=== PATIENT | female | born 1965 | race Caucasian/White ===

== ENCOUNTER 2018-04-01 15:28 | Emergency (ER) | payer OTHER, SELFPAY ==
[2018-04-01] MEDS ORDERED: KETOROLAC 30 MG/ML INJ ONE (16:04)
--- NOTE | 2018-04-01 17:23 | RAD REPORT ---
EXAM DESCRIPTION: RAD - Chest Pa And Lat (2 Views) - 04/01/2018 5:17 pm CLINICAL HISTORY: RIGHT UPPER BACK PAIN Chest pain. COMPARISON: Chest Single View dated 11/29/2016; CHEST PA AND LAT 2 VIEW dated 02/26/2015; CHEST SINGLE VIEW dated 02/26/2015; CHEST SINGLE VIEW dated 08/27/2014 FINDINGS: The lungs are clear. The heart is normal in size. No displaced fractures. Moderate lumbar scoliosis. IMPRESSION: No acute finding suspected. Lumbar scoliosis.
--- NOTE | 2018-04-01 17:36 | EDPHYS ---
Physician Documentation [facility] Name: Anitha Waggoner Age: 52 yrs Sex: Female : 1965 Arrival Date: 04/01/2018 Time: 15:30 Bed 25 Private MD: Aman Dolan E ED Physician Hung Yates HPI: 04/01 17:32 This 52 yrs old Female presents to ER via Ambulatory with complaints of Neck gs and Upper Back Pain. 17:32 The patient or guardian complains of pain, that is acute. The symptoms are located on gs the right posterior upper chest wall. Onset: The symptoms/episode began/occurred this morning. Associated signs and symptoms: Pertinent negatives: numbness, tingling, SUDDEN PIERCING CP. The pain does not radiate. Modifying factors: the symptoms are aggravated by movement. Severity of symptoms: At their worst the symptoms were moderate, in the emergency department the symptoms have improved, markedly. The patient has not experienced similar symptoms in the past. 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 Pneumococcal vaccine is not up to date, Flu vaccine is not up to date. - Social history:: Smoking status: Patient/guardian denies using tobacco, the patient reports quitting approximately 1 years ago. - Ebola Screening: : Patient negative for fever greater than or equal to 101.5 degrees Fahrenheit, and additional compatible Ebola Virus Disease symptoms. ROS: 17:32 All other systems are negative. gs Exam: 17:32 Head/Face: Normocephalic, atraumatic. Eyes: Pupils equal round and reactive to light, gs extra-ocular motions intact. Lids and lashes normal. Conjunctiva and sclera are non-icteric and not injected. Cornea within normal limits. Periorbital areas with no swelling, redness, or edema. ENT: Nares patent. No nasal discharge, no septal abnormalities noted. Tympanic membranes are normal and external auditory canals are clear. Oropharynx with no redness, swelling, or masses, exudates, or evidence of obstruction, uvula midline. Mucous membranes moist. Neck: Trachea midline, no thyromegaly or masses palpated, and no cervical lymphadenopathy. Supple, full range of motion without nuchal rigidity, or vertebral point tenderness. No Meningismus. Chest/axilla: Normal chest wall appearance and motion. Nontender with no deformity. No lesions are appreciated. Cardiovascular: Regular rate and rhythm with a normal S1 and S2. No gallops, murmurs, or rubs. Normal PMI, no JVD. No pulse deficits. Respiratory: Lungs have equal breath sounds bilaterally, clear to auscultation and percussion. No rales, rhonchi or wheezes noted. No increased work of breathing, no retractions or nasal flaring. Abdomen/GI: Soft, non-tender, with normal bowel sounds. No distension or tympany. No guarding or rebound. No evidence of tenderness throughout. Skin: Warm, dry with normal turgor. Normal color with no rashes, no lesions, and no evidence of cellulitis. MS/ Extremity: Pulses equal, no cyanosis. Neurovascular intact. Full, normal range of motion. Neuro: Awake and alert, GCS 15, oriented to person, place, time, and situation. Cranial nerves II-XII grossly intact. Motor strength 5/5 in all extremities. Sensory grossly intact. Cerebellar exam normal. Normal gait. 17:32 Constitutional: The patient appears alert, awake. 17:32 ECG was reviewed by the Attending Physician. 17:32 Back: pain, that is mild, of the right subscapular area. Vital Signs: 15:42 BP 148 / 85; Pulse 74; Resp 18; Temp 98.3; Pulse Ox 98% on R/A; rk2 16:21 BP 131 / 87; Pulse 67; Resp 16; Pulse Ox 98% on R/A; mb3 MDM: 15:56 Patient medically screened. 17:32 Differential diagnosis: Cervical Raiculopathy Cervical Spondylosis Degenerative Disc gs Disease. Differential diagnosis: CAD, PTX. Data reviewed: vital signs, nurses notes. Response to treatment: the patient's symptoms have markedly improved after treatment, and as a result, I will discharge patient. 04/01 17:33 Order name: Urine Dipstick--Ancillary (enter results) [facility] 04/01 17:33 Order name: Urine --Ancillary (enter results) [facility] 04/01 15:59 Order name: EKG; Complete Time: 16:00 04/01 15:59 Order name: EKG - Nurse/Tech; Complete Time: 16:08 04/01 15:59 Order name: XRAY Chest Pa And Lat (2 Views); Complete Time: 17:31 EC:32 Rate is 62 beats/min. Rhythm is regular. DC interval is normal. QRS interval is normal. gs T waves are Normal. No ST changes noted. Clinical impression: Normal ECG. Interpreted by me. Administered Medications: 16:07 Drug: TORadol 30 mg Route: IM; Site: right deltoid; mb3 18:08 Follow up: Response: No adverse reaction mb3 Disposition: 04/01/18 17:35 Discharged to Home. Impression: Dorsalgia. - Condition is Stable. - Discharge Instructions: Back Pain, Adult. - Prescriptions for Prednisone 20 mg Oral Tablet - take 1 tablet by ORAL route once daily for 5 days; 5 tablet. - Medication Reconciliation Form, Thank You Letter, Antibiotic Education, Prescription Opioid Use form. - Follow up: Private Physician; When: 2 - 3 days; Reason: Re-evaluation by your physician. Signatures: Dispatcher [employer] EDGA Hung Yates MD MD Sumaya Falk RN RN rk2 Armando Smith, RN RN mb3 Corrections: (The following items were deleted from the chart) 18:09 17:35 04/01/2018 17:35 Discharged to Home. Impression: Dorsalgia. Condition is Stable. mb3 Forms are Medication Reconciliation Form, Thank You Letter, Antibiotic Education, Prescription Opioid Use. Follow up: Private Physician; When: 2 - 3 days; Reason: Re-evaluation by your physician.
--- NOTE | 2018-04-01 17:36 | ER ---
Nurse's Notes [facility] Name: Anitha Waggoner Age: 52 yrs Sex: Female : 1965 Arrival Date: 04/01/2018 Time: 15:30 Bed 25 Private MD: Aman Dolan E Diagnosis: Dorsalgia Presentation: 04/01 15:39 Presenting complaint: Patient states: Right side neck/shoulder/upper back pain. rk2 Reproducible pain, pain on palpation. Onset this morning. Transition of care: patient was not received from another setting of care. Onset of symptoms was April 01, 2018. Risk Assessment: Do you want to hurt yourself or someone else? Patient reports no desire to harm self or others. Initial Sepsis Screen: Does the patient meet any 2 criteria? No. Patient's initial sepsis screen is negative. Does the patient have a suspected source of infection? No. Patient's initial sepsis screen is negative. Care prior to arrival: None. 15:39 Method Of Arrival: Ambulatory rk2 15:39 Acuity: YAMEL 3 rk2 Triage Assessment: 15:41 General: Appears in no apparent distress. well groomed, well developed, well nourished, rk2 Behavior is calm, cooperative. Pain: Complains of pain in Neck/shoulder/back. 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 Pneumococcal vaccine is not up to date, Flu vaccine is not up to date. - Social history:: Smoking status: Patient/guardian denies using tobacco, the patient reports quitting approximately 1 years ago. - Ebola Screening: : Patient negative for fever greater than or equal to 101.5 degrees Fahrenheit, and additional compatible Ebola Virus Disease symptoms. Screenin:49 Abuse screen: Denies threats or abuse. Nutritional screening: No deficits noted. mb3 Tuberculosis screening: No symptoms or risk factors identified. Fall Risk None identified. Assessment: 15:45 General: Appears in no apparent distress. comfortable, well groomed, Behavior is calm, mb3 cooperative, appropriate for age. Pain: Complains of pain in posterior chest. Neuro: Level of Consciousness is awake, alert, obeys commands, Oriented to person, place, time, situation, Appropriate for age. Cardiovascular: Denies chest pain, Heart tones S1 S2 present Capillary refill < 3 seconds is brisk. Respiratory: Airway is patent Respiratory effort is even, unlabored, Respiratory pattern is regular, symmetrical, Breath sounds are clear bilaterally. GI: No deficits noted. : No deficits noted. No signs and/or symptoms were reported regarding the genitourinary system. Musculoskeletal: Reports pain in right scapular area and right subscapular area. Vital Signs: 15:42 BP 148 / 85; Pulse 74; Resp 18; Temp 98.3; Pulse Ox 98% on R/A; rk2 16:21 BP 131 / 87; Pulse 67; Resp 16; Pulse Ox 98% on R/A; mb3 ED Course: 15:30 Patient arrived in ED. sb2 15:31 Aman Dolan MD is Private Physician. sb2 15:33 Armando Smith, MARTIN is Primary Nurse. mb3 15:37 Hung Yates MD is Attending Physician. gs 15:40 Triage completed. rk2 15:49 Arm band placed on left wrist. mb3 17:14 X-ray completed. Patient tolerated procedure well. kp1 17:15 XRAY Chest Pa And Lat (2 Views) In Process Unspecified. EDMS 18:09 Patient has correct armband on for positive identification. mb3 18:09 No provider procedures requiring assistance completed. Patient did not have IV access mb3 during this emergency room visit. Administered Medications: 16:07 Drug: TORadol 30 mg Route: IM; Site: right deltoid; mb3 18:08 Follow up: Response: No adverse reaction mb3 Outcome: 17:35 Discharge ordered by . 18:09 Discharged to home ambulatory. mb3 18:09 Condition: stable 18:09 Discharge instructions given to patient, Instructed on discharge instructions, follow up and referral plans. medication usage, Demonstrated understanding of instructions, follow-up care, medications, Prescriptions given X 1. 18:09 Patient left the ED. mb3 Signatures: Dispatcher [employer] EDKY Patrice Xiomy kp1 Hung Yates MD MD Sumaya Falk RN RN rk2 Tayler Phillips sb2 Armando Smith, RN RN mb3
[2018-04-01 17:52] LABS: Urine Blood NEGATIVE (NEG); Urine Glucose NEGATIVE (NEG); Urine Protein NEGATIVE (NEG); Urine Specific Gravity 1.015 (1.005-1.030)
[2018-04-01 18:31] VITALS: TEMP 98.3; O2SAT 98
[2018-04-01 18:33] VITALS: BP 131/87
--- NOTE | 2018-04-02 06:14 | EKG ---
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
== END 2018-04-01 18:09 | disposition home or self-care (01) ==
LOC: ER 15:28
DX: M54.9 Dorsalgia, unspecified (principal); I10 Essential (primary) hypertension
CPT/HCPCS: 71046; 81003; 81025; 93005; 96372; 99283

== ENCOUNTER 2018-06-13 11:26 | Emergency (ER) | payer OTHER ==
[2018-06-13 13:09] LABS: Barbiturates NEGATIVE (NEGATIVE); Benzodiazepines NEGATIVE (NEGATIVE); Cocaine NEGATIVE (NEGATIVE); METHAMPHETAM NEGATIVE (NEGATIVE); Methadone NEGATIVE (NEGATIVE); Opiates NEGATIVE (NEGATIVE); Phencyclidine NEGATIVE (NEGATIVE); THC Cannibis NEGATIVE (NEGATIVE)
[2018-06-13 13:30] LABS: Absolute Monocytes 0.3 K/uL (0.1-1.3); Absolute Neutrophil 3.7 K/uL (1.8-8.0); Basophils % 0.5 % (0-1.3); Eosinophils % 0.6 % (0-4.4); Hematocrit 38.8 % (36.0-45.0); Lymphocytes % 20.2 % (15.3-44.8); MCH 32.7 pg (27.0-35.0); MCV 95.7 fL (80-100); MPV 8.9 fL (7.6-11.3); Monocytes % 6.7 % (3.3-12.3); RBC Red Blood Cell Count 4.06 M/uL (3.86-4.86)
[2018-06-13 13:33] LABS: Protime INR 0.92
[2018-06-13 13:39] LABS: Urine Blood TRACE (NEG); Urine Glucose NEGATIVE (NEG); Urine Protein NEGATIVE (NEG); Urine pH 6.5 (5.0-7.0)
[2018-06-13 14:38] LABS: ALT/SGPT 15 U/L (12-78); AST/SGOT 18 U/L (15-37); Alkaline Phosphatase 75 U/L (45-117); BUN Blood Urea Nitrogen 11 mg/dL (7-18); Bicarbonate 30 mmol/L (21-32); Bilirubin Direct < 0.1 mg/dL (0-0.2); Bilirubin Total 0.4 mg/dL (0.2-1.0); Glucose Level 109 mg/dL (74-106); Potassium 3.9 mmol/L (3.5-5.1); Protein, Total 8.1 g/dL (6.4-8.2); Sodium Level 137 mmol/L (136-145)
[2018-06-13 14:41] LABS: Alcohol Serum/Plasma < 3 mg/dL (<3)
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
[2018-06-13 15:38] VITALS: BP 154/76; TEMP 98.2; O2SAT 100
--- NOTE | 2018-06-13 16:15 | EKG ---
Test Date: 2018-06-13 Test Time: 12:17:21 Kids Activities Coach: ANMOL MEASUREMENT RESULTS: Intervals: Rate: 70 IN: 126 QRSD: 88 QT: 402 QTc: 434 [place]: P: 42 IN: 126 QRS: 37 T: 26 INTERPRETIVE STATEMENTS: Normal sinus rhythm Normal ECG Compared to ECG 04/01/2018 16:04:01 No significant changes Electronically Signed On 06-13-18 16:14:25 CDT by James Mesa
== END 2018-06-13 15:12 | disposition home or self-care (01) ==
LOC: ER 11:26
DX: K11.7 Disturbances of salivary secretion (principal); F22 Delusional disorders; I10 Essential (primary) hypertension; M32.9 Systemic lupus erythematosus, unspecified
CPT/HCPCS: 36415; 80048; 80076; 80307; 80320; 80329; 81003; 85025; 85610; 85730; 93005; 99283

== ENCOUNTER 2020-04-08 11:58 | Emergency (ER) | payer OTHER, SELFPAY ==
--- NOTE | 2020-04-08 12:57 | RAD REPORT ---
EXAM DESCRIPTION: RAD - Chest Single View - 04/08/2020 12:50 pm CLINICAL HISTORY: CHEST PAIN COMPARISON: Two view chest March 2018 TECHNIQUE: AP portable chest image was obtained 04/08/2020 12:50 pm . FINDINGS: Lungs are clear. Heart and vasculature are normal. No measurable pleural effusion and no p neumothorax. No acute bone finding. Prominent thoracolumbar scoliosis again noted. No acute aortic fi ndings suspected. IMPRESSION: No acute cardiopulmonary process. No significant interval change.
[2020-04-08 13:11] LABS: Absolute Lymphocytes (CBC) 0.5 K/uL (0.7-4.9); Basophils % 0.5 % (0-1.3); Hematocrit 34.7 % (36.0-45.0); Lymphocytes % 6.9 % (15.3-44.8); MPV 8.6 fL (7.6-11.3)
[2020-04-08 13:27] LABS: ALT/SGPT 16 U/L (12-78); AST/SGOT 13 U/L (15-37); Albumin 3.7 g/dL (3.4-5.0); Alkaline Phosphatase 106 U/L (45-117); BUN Blood Urea Nitrogen 10 mg/dL (7-18); Bicarbonate 27 mmol/L (21-32); Bilirubin Direct 0.1 mg/dL (0-0.2); Bilirubin Total 0.4 mg/dL (0.2-1.0); Glucose Level 101 mg/dL (74-106); Lipase 55 U/L (73-393); Protein, Total 7.1 g/dL (6.4-8.2); Sodium Level 137 mmol/L (136-145)
--- NOTE | 2020-04-08 13:35 | RAD REPORT ---
EXAM DESCRIPTION: CT - Abdomen Pelvis W Contrast - 04/08/2020 1:23 pm CLINICAL HISTORY: ABD PAIN, left-sided abdomen pain for 3 or 4 days, history of hepatitis and hypert ension COMPARISON: CT ABD PELVIS W CONTRAST dated 03/31/2014 TECHNIQUE: Biphasic, helical CT imaging of the abdomen and pelvis was performed following 100 ml non -ionic IV contrast. No oral contrast administered. All CT scans are performed using dose optimization technique as appropriate and may include automated exposure control or mA/KV adjustment according to patient size. FINDINGS: No suspicious findings in the lung bases. Small nodule lateral left base has not changed s crystal 2013. Liver shows no new, suspicious findings. A 3 centimeter subcapsular lateral right lobe mass shows hem angioma imaging characteristics, unchanged since 2013. No splenomegaly or focal splenic finding. No p ancreatic or peripancreatic acute finding seen. Gallbladder and biliary tree are also without suspici ous finding. Symmetric renal function is seen with no hydronephrosis or suspicious renal mass. No pyelonephritis o r acute parenchymal process. No bladder abnormalities. No adrenal abnormalities. No uterine or ovaria n suspicious finding. No gastric dilatation or wall thickening. No dilated small bowel. There is fecalized bowel content in the distal ileum. Appendix is normal. From cecum through the descending colon there is no acute find ing. A 7-8 centimeter long segment of sigmoid colon shows circumferential wall thickening. There is edema in the adjacent fat. Numerous diverticula are present in this region. A discrete mass or abscess is n ot identified. No extraluminal bowel content seen. No free air or pneumatosis. Trace amount of free fluid in the dependent portion of the pelvis. No hernia, mass or bulky lymphadenopathy. No suspicious bony findings. IMPRESSION: Approximately 7-8 centimeter long segment of moderate severity diverticulitis. No absces s, free air or surgically emergent finding. Fecalized bowel content in a large portion of the distal ileum probably the affects of overall dimini shed motility due to the diverticulitis.
[2020-04-08] MEDS ORDERED: CIPROFLOXACIN 400mg IV 400 MG/200 ML BAG IV ONE (14:14)
[2020-04-08] MEDS ORDERED: METRONIDAZOLE 500mg IVPB 500 MG/100 ML BAG IV ONE (14:14)
[2020-04-08 14:18] LABS: Urine Blood NEGATIVE (NEG); Urine Glucose NEGATIVE (NEG); Urine Protein NEGATIVE (NEG); Urine Specific Gravity 1.015 (1.005-1.030); Urine pH 5.5 (5.0-7.0)
--- OUTSIDE RECORDS SUMMARY | 2020-04-08 14:28 | XMS REPORT | Continuity of Care Document ---
:1965 Author Organization [facility] t Address [facility] [address] [place] [address] Care Team Providers Name Role Phone Teri Silverman DO Attending Clinician Problems This patient has no known problems. Allergies, Adverse Reactions, Alerts This patient has no known allergies or adverse reactions. Medications This patient has no known medications. Procedures This patient has no known procedures. Encounters Start End Encounter Admission Attending Care Care Encounter Source Date/Time Date/Time Type Type Clinicians Facility Department ID 2019-06-09 2019-06-09 Emergency Herrera [facility] [id number] 18:56:41 21:02:00 Ana Lan [id number] [place] [id number] [place] [id number] Results This patient has no known results.
--- NOTE | 2020-04-08 15:12 | ER ---
Nurse's Notes [facility] Name: Anitha Waggoner Age: 54 yrs Sex: Female : 1965 Arrival Date: 04/08/2020 Time: 12:03 Bed 2 Private MD: Diagnosis: Diverticulitis of intestine, part unspecified, without perforation or abscess without bleeding Presentation: 04/08 12:13 Chief complaint: Patient states: intermittent, sharp, shooting pain to L side of chest, ss neck pain and abd pain that began 3-4 days ago. Pt reports her neck feels a little better, but now the tips of her fingers on both hands are a little numb and tingly off and on. Coronavirus screen: Proceed with normal triage. Patient denies a cough. Patient denies shortness of breath or difficulty breathing. Patient denies measured and/or subjective temperature greater than 100.4F prior to today's visit. Patient denies travel on a cruise ship or to a country the [facility] currently lists as an affected area. Patient denies contact with known and/or suspected case of COVID-19. Ebola Screen: Patient denies exposure to infectious person. Patient denies travel to an Ebola-affected area in the 21 days before illness onset. Initial Sepsis Screen: Does the patient meet any 2 criteria? No. Patient's initial sepsis screen is negative. Does the patient have a suspected source of infection? No. Patient's initial sepsis screen is negative. Risk Assessment: Do you want to hurt yourself or someone else? Patient reports no desire to harm self or others. Onset of symptoms was April 04, 2020. 12:13 Method Of Arrival: Ambulatory ss 12:13 Acuity: YAMEL 3 ss Historical: - Allergies: 12:16 No Known Allergies; ss - PMHx: 12:16 Hepatitis; Hypertension; Lupus; ss - Immunization history:: Adult Immunizations up to date. - Social history:: Smoking status: Patient reports the use of cigarette tobacco products, denies chronic smoking, but will smoke occasionally. - Family history:: not pertinent. - Hospitalizations: : No recent hospitalization is reported. Screenin:30 Abuse screen: Denies threats or abuse. Denies injuries from another. Nutritional ph screening: No deficits noted. Tuberculosis screening: No symptoms or risk factors identified. Fall Risk None identified. Assessment: 13:00 General: Appears in no apparent distress. comfortable, slender, well groomed, Behavior ph is calm, cooperative, appropriate for age, Denies fever. Pain: Complains of pain in abdomen. Neuro: Level of Consciousness is awake, alert, obeys commands, Oriented to person, place, time, situation. Cardiovascular: Reports nausea, Denies chest pain. Respiratory: Airway is patent Respiratory effort is even, unlabored, Respiratory pattern is regular, symmetrical. GI: Reports lower abdominal pain, upper abdominal pain, nausea. Derm: Skin is intact, is healthy with good turgor, Skin is pink, warm \T\ dry. 14:00 Reassessment: Patient appears in no apparent distress at this time. Patient and/or ph family updated on plan of care and expected duration. Pain level reassessed. Patient is alert, oriented x 3, equal unlabored respirations, skin warm/dry/pink. 15:40 Reassessment: Patient appears in no apparent distress at this time. Patient and/or ph family updated on plan of care and expected duration. Pain level reassessed. Patient is alert, oriented x 3, equal unlabored respirations, skin warm/dry/pink. D/C pending completion of IV antibiotics. 16:00 Reassessment: Patient appears in no apparent distress at this time. Patient and/or ph family updated on plan of care and expected duration. Pain level reassessed. Patient is alert, oriented x 3, equal unlabored respirations, skin warm/dry/pink. Pt requesting pain medication, ERP notified, see MAR. Vital Signs: 12:13 BP 143 / 94; Pulse 73; Resp 16; Temp 98.3(TE); Pulse Ox 100% on R/A; Weight 68.04 kg; ss Height 5 ft. 6 in. (167.64 cm); 13:30 BP 139 / 83; Pulse 64; Resp 18; Pulse Ox 99% on R/A; ph 14:30 BP 142 / 92; Pulse 71; Resp 16; Pulse Ox 98% on R/A; ph 15:30 BP 138 / 87; Pulse 77; Resp 16; Pulse Ox 99% on R/A; ph 16:30 BP 141 / 79; Pulse 63; Resp 16; Temp 97.9; Pulse Ox 99% on R/A; ph 12:13 Body Mass Index 24.21 (68.04 kg, 167.64 cm) ED Course: 12:03 Patient arrived in ED. fj1 12:16 Triage completed. ss 12:16 Arm band placed on left wrist. ss 12:17 Jonathan Sheffield MD is Attending Physician. rn 12:21 Navya Corrigan RN is Primary Nurse. ph 12:30 Patient has correct armband on for positive identification. Placed in gown. Bed in low ph position. Call light in reach. Side rails up X 1. threat monitoring analyst on. Pulse ox on. NIBP on. 12:46 XRAY Chest (1 view) In Process Unspecified. EDMS 12:55 Inserted saline lock: 22 gauge in left antecubital area, using aseptic technique. Blood ph collected. 13:05 EKG done, by ED staff, reviewed by Jonathan Sheffield MD. [facility] 13:22 CT Abd/Pelvis - IV Contrast Only In Process Unspecified. EDMS 15:11 Aman Johnston MD is Referral Physician. rn 16:35 No provider procedures requiring assistance completed. IV discontinued, intact, ph bleeding controlled, No redness/swelling at site. Pressure dressing applied. Patient maintains SpO2 saturation greater than 95% on room air. Administered Medications: 14:47 Drug: Cipro 400 mg Volume: 200 ml; Route: IVPB; Infused Over: 60 mins; Site: left ph antecubital; 16:00 Follow up: Response: No adverse reaction; IV Status: Completed infusion ph 15:33 Drug: Zofran (Ondansetron) 4 mg Route: IVP; Site: left antecubital; ph 16:10 Follow up: Response: No adverse reaction ph 15:35 Drug: Flagyl 500 mg Volume: 100 ml; Route: IVPB; Rate: 200 ml/hr; Infused Over: 30 ph mins; Site: left antecubital; 16:10 Follow up: Response: No adverse reaction; IV Status: Completed infusion ph 15:35 CANCELLED (Other Intervention Used): Demerol 50 mg IVP once; RASS on ADMIN: Combtv4, ph Very Agttd3, Agttd2, Rstlss1, AlertClm0, Drwsy-1, Lt Sdtn-2, Mod Sdtn-3, Dp Sdtn-4, UnArsble-5 15:35 Drug: morphine 4 mg Route: IVP; Site: left antecubital; ph 16:00 Follow up: Response: No adverse reaction; Pain is decreased; RASS: Alert and Calm (0) ph Outcome: 15:12 Discharge ordered by . rn 16:38 Patient left the ED. ph 16:38 Discharged to home ambulatory. ph 16:38 Condition: good 16:38 Discharge instructions given to patient, Instructed on discharge instructions, follow up and referral plans. medication usage, Demonstrated understanding of instructions, follow-up care, medications, Prescriptions given X 4. Signatures: Dispatcher [employer] EDMS Jonathan Sheffield MD MD rn Smirch, Shelby, RN RN Navya Corrigan RN RN Berenice Guerra [facility] [place] [facility]
--- NOTE | 2020-04-08 15:12 | EDPHYS ---
Physician Documentation [facility] Name: Anitha Waggoner Age: 54 yrs Sex: Female : 1965 Arrival Date: 04/08/2020 Time: 12:03 Bed 2 Private MD: ED Physician Jonathan Sheffield HPI: 04/08 12:47 This 54 yrs old Female presents to ER via Ambulatory with complaints of Chest rn Pain > 30 y/o, Abdominal Pain, Numbness Of Hand, Neck Pain, >24Hrs Old. 12:47 The patient presents with abdominal pain that is diffuse. rn 12:50 Onset: The symptoms/episode began/occurred 2 week(s) ago. The symptoms do not radiate. rn Associated signs and symptoms: Pertinent positives: neck pain, chronic back pain, abdominal pain. The symptoms are described as sharp. Modifying factors: The symptoms are alleviated by nothing, the symptoms are aggravated by nothing. Severity of pain: At its worst the pain was mild in the emergency department the pain is unchanged. The patient has experienced similar episodes in the past. Reports chronic back pain, atleast 2 weeks of neck and shoulder pain with intermittent tingling of both hands/arms, but none currently. Reports 2 weeks of abdominal pain, sharp, intermittent, not improving. Also reports sharp left sided chest pain that is worse with movement, not assoc with breathing/coughing/trauma. Reports has had similar chest pain in past, blamed on lupus, no known cardiac problems. . Historical: - Allergies: 12:16 No Known Allergies; ss - PMHx: 12:16 Hepatitis; Hypertension; Lupus; ss - Immunization history:: Adult Immunizations up to date. - Social history:: Smoking status: Patient reports the use of cigarette tobacco products, denies chronic smoking, but will smoke occasionally. - Family history:: not pertinent. - Hospitalizations: : No recent hospitalization is reported. ROS: 12:50 Constitutional: Negative for fever, chills, and weight loss, Eyes: Negative for injury, rn pain, redness, and discharge, Neck: Negative for injury, pain, and swelling, Cardiovascular: Negative for palpitations, and edema, Respiratory: Negative for shortness of breath, cough, wheezing Abdomen/GI: Negative for vomiting, diarrhea, and constipation, MS/Extremity: Negative for injury and deformity, Skin: Negative for injury, rash, and discoloration, Neuro: Negative for headache, weakness, numbness, tingling, and seizure. Exam: 12:50 Constitutional: This is a well developed, well nourished patient who is awake, alert, rn and in no acute distress. Head/Face: Normocephalic, atraumatic. Neck: Trachea midline, no thyromegaly or masses palpated, and no cervical lymphadenopathy. Supple, full range of motion without nuchal rigidity, or vertebral point tenderness. No Meningismus. Chest/axilla: Normal chest wall appearance and motion. Nontender with no deformity. No lesions are appreciated. Cardiovascular: Regular rate and rhythm. No pulse deficits. Respiratory: Speaking full sentences. No increased work of breathing, no retractions or nasal flaring. Abdomen/GI: soft, mild tenderness all 4 quadrants. Small ventral hernia. Skin: Warm, dry with normal turgor. Normal color with no rashes, no lesions, and no evidence of cellulitis. MS/ Extremity: Pulses equal, no cyanosis. Neurovascular intact. Full, normal range of motion. Equal circumference. Neuro: Awake and alert, GCS 15, oriented to person, place, time, and situation. Cranial nerves II-XII grossly intact. Motor strength 5/5 in all extremities. Sensory grossly intact. Cerebellar exam normal. Normal gait. 14:03 ECG was reviewed by the Attending Physician. rn Vital Signs: 12:13 BP 143 / 94; Pulse 73; Resp 16; Temp 98.3(TE); Pulse Ox 100% on R/A; Weight 68.04 kg; ss Height 5 ft. 6 in. (167.64 cm); 13:30 BP 139 / 83; Pulse 64; Resp 18; Pulse Ox 99% on R/A; ph 14:30 BP 142 / 92; Pulse 71; Resp 16; Pulse Ox 98% on R/A; ph 15:30 BP 138 / 87; Pulse 77; Resp 16; Pulse Ox 99% on R/A; ph 16:30 BP 141 / 79; Pulse 63; Resp 16; Temp 97.9; Pulse Ox 99% on R/A; ph 12:13 Body Mass Index 24.21 (68.04 kg, 167.64 cm) MDM: 12:17 Patient medically screened. rn 15:07 Differential diagnosis: appendicitis, bowel obstruction, diverticulitis, rn gastroesophageal reflux disease, non-specific abd pain, pancreatitis, Peptic Ulcer Disease. Data reviewed: vital signs, nurses notes, lab test result(s), radiologic studies, CT scan, and as a result, I will discharge patient. Counseling: I had a detailed discussion with the patient and/or guardian regarding: the historical points, exam findings, and any diagnostic results supporting the discharge/admit diagnosis, lab results, radiology results, the need for outpatient follow up, to return to the emergency department if symptoms worsen or persist or if there are any questions or concerns that arise at home. 15:07 Response to treatment: the patient's symptoms have markedly improved after treatment, rn and as a result, I will discharge patient. Special discussion: I discussed with the patient/guardian in detail that at this point there is no indication for admission to the hospital. It is understood, however, that if the symptoms persist or worsen the patient needs to return immediately for re-evaluation. Based on the history and exam findings, there is no indication for further emergent testing or inpatient evaluation. I discussed with the patient/guardian the need to see the supervisor machine setter for further evaluation of the symptoms. ED course: Pt with CT abdomen showing moderate segmental diverticulitis, normal WBC, stable vitals, non-toxic, not septic, will dc home with abx, prn zofran, and return precautions. . ED course: [place] checked, scores of 060/040/000/120. . 04/08 12:30 Order name: Basic Metabolic Panel; Complete Time: 13:32 rn 04/08 12:30 Order name: CBC with Diff; Complete Time: 13:32 rn 04/08 12:30 Order name: Hepatic Function; Complete Time: 13:32 rn 04/08 12:30 Order name: Lipase; Complete Time: 13:32 rn 04/08 13:41 Order name: CREATININE WHOLE BLOOD; Complete Time: 13:58 EDMS 04/08 14:13 Order name: Urine Dipstick--Ancillary (enter results); Complete Time: 15:07 bd 04/08 12:30 Order name: CT Abd/Pelvis - IV Contrast Only; Complete Time: 13:38 rn 04/08 12:30 Order name: XRAY Chest (1 view); Complete Time: 13:08 rn 04/08 12:30 Order name: EKG; Complete Time: 12:31 rn 04/08 12:30 Order name: IV Saline Lock; Complete Time: 13: rn 04/08 12:30 Order name: Labs collected and sent; Complete Time: 13: rn 04/08 12:30 Order name: EKG - Nurse/Tech; Complete Time: 13:05 rn EC:03 Rate is 63 beats/min. Rhythm is regular. QRS [place] is Normal. NV interval is normal. QRS rn interval is normal. QT interval is normal. No Q waves. T waves are Normal. No ST changes noted. Clinical impression: Normal ECG. Interpreted by me. Reviewed by me. Administered Medications: 14:47 Drug: Cipro 400 mg Volume: 200 ml; Route: IVPB; Infused Over: 60 mins; Site: left ph antecubital; 16:00 Follow up: Response: No adverse reaction; IV Status: Completed infusion ph 15:33 Drug: Zofran (Ondansetron) 4 mg Route: IVP; Site: left antecubital; ph 16:10 Follow up: Response: No adverse reaction ph 15:35 Drug: Flagyl 500 mg Volume: 100 ml; Route: IVPB; Rate: 200 ml/hr; Infused Over: 30 ph mins; Site: left antecubital; 16:10 Follow up: Response: No adverse reaction; IV Status: Completed infusion ph 15:35 CANCELLED (Other Intervention Used): Demerol 50 mg IVP once; RASS on ADMIN: Combtv4, ph Very Agttd3, Agttd2, Rstlss1, AlertClm0, Drwsy-1, Lt Sdtn-2, Mod Sdtn-3, Dp Sdtn-4, UnArsble-5 15:35 Drug: morphine 4 mg Route: IVP; Site: left antecubital; ph 16:00 Follow up: Response: No adverse reaction; Pain is decreased; RASS: Alert and Calm (0) ph Disposition: 04/08/20 15:12 Discharged to Home. Impression: Diverticulitis of intestine, part unspecified, without perforation or abscess without bleeding. - Condition is Stable. - Discharge Instructions: Diverticulitis. - Prescriptions for Zofran ODT 4 mg Oral tablet,disintegrating - place 1 tablet by TRANSLINGUAL route every 8 hours As needed; 20 tablet. Cipro 500 mg Oral Tablet - take 1 tablet by ORAL route every 12 hours for 10 days; 20 tablet. Flagyl 500 mg Oral Tablet - take 1 tablet by ORAL route every 8 hours for 10 days; 30 tablet. Tramadol 50 mg Oral Tablet - take 1 tablet by ORAL route every 8 hours as needed; 15 tablet. - Medication Reconciliation Form, Thank You Letter, Antibiotic Education, Prescription Opioid Use form. - Follow up: Aman Johnston MD; When: 2 - 3 days; Reason: Recheck today's complaints, Re-evaluation by your physician. - Problem is new. - Symptoms have improved. Signatures: Dispatcher [employer] EDMS Jonathan Sheffield MD MD rn Smirch, Shelby, RN RN ss Navya Corrigan RN RN ph Corrections: (The following items were deleted from the chart) 15:35 15:05 Demerol 50 mg IVP once; RASS on ADMIN: Combtv4, Very Agttd3, Agttd2, Rstlss1, ph AlertClm0, Drwsy-1, Lt Sdtn-2, Mod Sdtn-3, Dp Sdtn-4, UnArsble-5 ordered. ph 16:38 15:12 04/08/2020 15:12 Discharged to Home. Impression: Diverticulitis of intestine, ph part unspecified, without perforation or abscess without bleeding. Condition is Stable. Forms are Medication Reconciliation Form, Thank You Letter, Antibiotic Education, Prescription Opioid Use. Follow up: Aman Johnston; When: 2 - 3 days; Reason: Recheck today's complaints, Re-evaluation by your physician. Problem is new. Symptoms have improved. rn
[2020-04-08] MEDS ORDERED: MORPHINE 4 MG/ML SYR ONE (15:15)
[2020-04-08] MEDS ORDERED: ONDANSETRON 4 MG/2 ML VIAL ONE (15:15)
[2020-04-08 19:07] VITALS: BP 143/94; TEMP 98.3; O2SAT 100
--- NOTE | 2020-04-09 06:32 | EKG ---
Test Date: 2020-04-08 Test Time: 13:12:42 Consulting Nurse: PATRICIA MEASUREMENT RESULTS: Intervals: Rate: 63 ME: 126 QRSD: 82 QT: 416 QTc: 425 [place]: P: 70 ME: 126 QRS: 64 T: 50 INTERPRETIVE STATEMENTS: Normal sinus rhythm Possible Left atrial enlargement Borderline ECG Compared to ECG 06/13/2018 12:17:21 No significant changes Electronically Signed On 04-09-20 06:30:43 CDT by James Mesa
== END 2020-04-08 16:38 | disposition home or self-care (01) ==
LOC: ER 11:58
DX: K57.92 Diverticulitis of intestine, part unspecified, without perforation or abscess without bleeding (principal); R07.9 Chest pain, unspecified; I10 Essential (primary) hypertension; Z72.0 Tobacco use
CPT/HCPCS: 36415; 71045; 74177; 80048; 80076; 81003; 82565; 83690; 85025; 93005; 96365; 96375; 99285; J0744; J2405; Q9967

== ENCOUNTER 2020-06-23 07:34 | Emergency (ER) | payer SELFPAY ==
--- OUTSIDE RECORDS SUMMARY | 2020-06-23 07:38 | XMS REPORT | Summary of Care ---
:1965 Author Organization [facility] Address [address] [place] [address] Care Team Providers Name Role Phone Shad Dolan Insurance Hmo RABIA Panda Primary Care Provider Reason for Visit Reason Comments LAB WORK Auth/Cert Status Reason Specialty Diagnoses / Procedures Referred By Johan espinoza Referred To Contact Phlebotomy Diagnoses r19.7 Adc Pob Lab Draw Procedures [facility] [employer] Professional Office Building [address] [place] [address] , [address] [place] [address] Phone: Fax: Encounter Details Date Type Department Care Team Description 05/15/2020 Stenotype Operator Visit [facility] Alexis Levi MD [address] [facility] [address] [place] [address] Diarrhea of Professional Office Pob, Adc Lab Main presumed infectious Building Phlebotomy origin ( Primary Dx) Lab Professional [facility] Building [address] [place] [address] , [address] [place] [address] Allergies No Known Allergiesdocumented as of this encounter (statuses as of 05/15/2020) Medications Medication Sig Dispensed Refills Start Date End Date Status acetaminophen-codeine Take 1 Tab by 28 Tab 0 06/11/2015 Active (TYLENOL #3) 300-30 mg mouth every 6 tablet (six) hours as needed for Pain unrelieved by non-narcotic analgesics. HYDROXYCHLOROQUINE Take by mouth. 0 Active SULFATE (PLAQUENIL ORAL) DICLOFENAC 75 mg EC TAKE ONE TABLET 60 tablet 0 08/06/2018 Active tablet BY MOUTH TWICE A DAY WITH MEALS LORazepam (ATIVAN) 1 mg Take 1 tablet by 12 tablet 0 9 Active tabletIndications: mouth 3 (three) Unable to control anger, times daily as Situational anxiety needed for Anxiety or Agitation. atenolol 100 mg Take 1 tablet by 30 tablet 3 04/25/2019 Active tabletIndications: mouth at Essential hypertension bedtime. documented as of this encounter (statuses as of 05/15/2020) Active Problems Problem Noted Date Essential hypertension 04/25/2019 Chronic pain syndrome 04/25/2019 Mammogram abnormal 06/07/2017 Abnormal mammogram 05/31/2017 Overview: RIGHT BREAST: Asymmetry measuring 9 millimeters high at a middle depth; 3 cm from the nipple and is seen only in t he craniocaudal projection medially. Spot compression/tomosynthesis and possible ultrasound are recommended at this time. LEFT BREAST: Negative, no evidence of ma lignancy. Normal interval follow-up is recommended in 12 months. USG ordered. Tobacco abuse 05/02/2017 Chest pain 06/10/2015 Lupus (systemic lupus erythematosus) 10/15/2009 chronic HTN 07/14/2009 Other kyphoscoliosis and scoliosis 01/30/2007 Degeneration of intervertebral disc, site unspecified 01/30/2007 Localized osteoarthrosis not specified whether primary or secondary, other 01/30/2007 specified sites Overview: Hip & Spine Sprain of unspecified site of sacroiliac region 2006 Unspecified joint disorder of other specified site Overview: Joint dysfunction Chest pain 01/30/2007 Overview: ICD10 Diagnosis Term Pattern Designer Utility Panic disorder without agoraphobia 01/30/2007 Overview: Panic Attacks Hepatitis C carrier 01/30/2007 Major depressive disorder, single episode, severe 01/14 Overview: ICD10 Diagnosis Term Pattern Designer Utility 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, 01/29/2007 continuous documented as of this encounter (statuses as of 05/15/2020) Resolved Problems Problem Noted Date Resolved Date Nausea and vomiting in 07/14/2009 009 documented as of this encounter (statuses as of 05/15/2020) Immunizations Name Administration Dates Next Due Td 10/05/2007 documented as of this encounter Social History Tobacco Use Types Packs/Day Years Used Date Current Every Day Smoker Cigarettes 1 11 Smokeless Tobacco: Never Used Alcohol Use Drinks/Week oz/Week Comments No 0 Standard drinks or equivalent 0.0 n Financial Resource Strain Answer Date Recorded How hard is it for you to pay for the very basics like Somew hat hard 04/25/2019 food, housing, medical care, and heating? Sex Assigned at Date Recorded Not on file Job Start Date Occupation Industry Not on file Not on file Not on file Travel History Travel Start Travel End No recent travel history available. COVID-19 Exposure Response Date Recorded In the last month, have you been in contact with No / Unsure 05/15/2020 11:28 AM CDT someone who was confirmed or suspected to have Coronavirus / COVID-19? documented as of this encounter Last Filed Vital Signs Not on filedocumented in this encounter Plan of Treatment Name Type Priority Associated Diagnoses Date/Ti me OVA AND PARASITE EXAM LAB Routine Diarrhea of presume d 05/15/2020 11:01 AM CDT FECAL infectious origin Name Type Priority Associated Diagnoses Order S chedule OVA AND PARASITE EXAM LAB Routine Diarrhea of presume d Expected: 05/15/2020, FECAL infectious origin Expires: 0 05/15/2021 Health Maintenance Due Date Last Done Comments PNEUMOCOCCAL 0-64 YEARS COMBINED 1973 SERIES (1 of 1 - PPSV23) DTaP,Tdap,and Td Vaccines (1 - 1978 10/05/2007 Tdap) Depression Screening 1979 COLONOSCOPY 2017 Zoster Recombinant Vaccine 2017 (SHINGRIX) (1 of 2) Breast Cancer Screening 06/07/2018 06/07/2017, 04/13/2016 (MAMMOGRAM) PAP SMEAR 05/02/2020 05/02/2017, 09/17/2009, 06/18/2008, Additional history exists INFLUENZA VACCINE (#1) 2020 documented as of this encounter Goals Goal Patient Goal Associated Recent Patient-Stated? Author Type Problems Progress Quit using Tobacco Use Yes Anene, tobacco Anel, WINDOW DECORATOR (cigarettes, smokeless, etc) Note: Uses smoking for coping, but feels when she her mental issues under control she maybe able to quit documented as of this encounter Results Not on filedocumented in this encounter Visit Diagnoses Diagnosis Diarrhea of presumed infectious origin - Primary documented in this encounter
--- OUTSIDE RECORDS SUMMARY | 2020-06-23 07:38 | XMS REPORT | Continuity of Care Document ---
:1965 Author Organization [facility] t Address [address] [place] [address] [address]. [address]aya. [address] [place] [address] Care Team Providers Name Role Phone Carter Haile MD Attending Clinician Doctor Unassigned, Name Attending Clinician Unavailable Problems This patient has no known problems. Allergies, Adverse Reactions, Alerts This patient has no known allergies or adverse reactions. Medications This patient has no known medications. Procedures This patient has no known procedures. Encounters Start End Encounter Admission Attending Care Care Encounter Source Date/Time Date/Time Type Type Clinicians Facility Department ID 2020-06-15 2020-06-15 Office SUNIL Haile [id number] 13:59:52 14:14:52 Visit Santy Lan [id number] Carter Siddiqui [id number] [place] [id number] [address] 2020-06-15 2020-06-15 Orders Doctor CELSA [id number] 00:00:00 00:00:00 Only UnassignedCHRIS [id number] [facility] [id number] Results This patient has no known results.
--- OUTSIDE RECORDS SUMMARY | 2020-06-23 07:38 | XMS REPORT | Summary of Care ---
:1965 Author Organization [facility] Address [address] [place] [address] Care Team Providers Name Role Phone Shad Dolan Insurance Hmo RABIA Panda Primary Care Provider Reason for Visit Reason Comments LAB WORK Auth/Cert Status Reason Specialty Diagnoses / Procedures Referred By Johan espinoza Referred To Contact Phlebotomy Diagnoses r19.7 Adc Pob Lab Draw Procedures [facility] Professional [facility] Building [address] [place] [address] , [address] [place] [address] Phone: Fax: Encounter Details Date Type Department Care Team Description 05/15/2020 Medical Insurance Biller Visit [facility] Alexis Levi MD [address] [facility] [address] [place] [address] Diarrhea of Professional Office Pob, Adc Lab Main presumed infectious Building Phlebotomy origin ( Primary Dx) Lab [facility] Building [address] [place] [address] , [address] [place] [address] Allergies No Known Allergiesdocumented as [...] Chest pain 01/30/2007 Overview: ICD10 Diagnosis Term Network Applications Specialist Utility Panic disorder without agoraphobia 01/30/2007 Overview: Panic Attacks Hepatitis C carrier 01/30/2007 Major depressive disorder, single episode, severe 01/14 Overview: ICD10 Diagnosis Term Network Applications Specialist Utility Combinations of opioid type drug with [...] using Tobacco Use Yes Anene, tobacco Anel, OBSTETRICIAN (cigarettes, smokeless, etc) Note: Uses smoking for coping, but feels when she her mental issues under control she maybe able to quit documented as of this encounter Results Not on filedocumented in this encounter Visit Diagnoses Diagnosis Diarrhea of presumed infectious origin - Primary documented in this encounter
--- OUTSIDE RECORDS SUMMARY | 2020-06-23 07:38 | XMS REPORT | Summary of Care ---
:1965 Author Organization [facility] - Health Address [address] [place] [address] Care Team Providers Name Role Phone Shad Dolan Insurance Hmo RABIA Panda Primary Care Provider Encounter Details Date Type Department Care Team Description 05/15/2020 Orders Only [facility] Doctor Unassigned, No [address] [facility] [place] [address] [address] [place] [address] Allergies No Known Allergiesdocumented as of this [...] Chest pain 01/30/2007 Overview: ICD10 Diagnosis Term Supervisor Photocomposition Utility Panic disorder without agoraphobia 01/30/2007 Overview: Panic Attacks Hepatitis C carrier 01/30/2007 Major depressive disorder, single episode, severe 01/14 Overview: ICD10 Diagnosis Term Supervisor Photocomposition Utility Combinations of opioid type drug with [...] filedocumented in this encounter Plan of Treatment Date Type Specialty Care Team Description 05/15/2020 Photographer Model Visit Phlebotomy Alexis Levi MD [address] [place] [address] [address] [place] [address] [phone] Arrived Pob, Adc Lab Main Health Maintenance Due Date Last Done Comments [...] using Tobacco Use Yes Anene, tobacco Anel, SMALL BUSINESS REPRESENTATIVE (cigarettes, smokeless, etc) Note: Uses smoking for coping, but feels when she her mental issues under control she maybe able to quit documented as of this encounter Procedures Procedure Name Priority Date/Time Associated Diagnosis Comme nts ASSIGNMENT OF BENEFITS Routine 05/15/2020 11:29 AM CDT documented in this encounter Results Not on filedocumented in this encounter
--- OUTSIDE RECORDS SUMMARY | 2020-06-23 07:39 | XMS REPORT | Summary of Care ---
:1965 Author Organization [facility] Address [address] [place] [address] Care Team Providers Name Role Phone Shad Dolan Insurance Hmo RABIA Panda Primary Care Provider Reason for Visit Reason Comments LAB WORK Auth/Cert Status Reason Specialty Diagnoses / Procedures Referred By Johan espinoza Referred To Contact Phlebotomy Diagnoses r19.7 Adc Pob Lab Draw Procedures [facility] Professional [facility] Building [address] [place] [address] , [address] [place] [address] Phone: Fax: Encounter Details Date Type Department Care Team Description 05/15/2020 Insurance Consultant Visit [facility] Alexis Levi MD [address] [facility] [address] [place] [address] Diarrhea of Professional Office Pob, Adc Lab Main presumed infectious Building Phlebotomy origin ( Primary Dx) Lab [facility] Building [address] [place] [address] , [address] [place] [address] Allergies No Known Allergiesdocumented as [...] Chest pain 01/30/2007 Overview: ICD10 Diagnosis Term First Coat Operator Utility Panic disorder without agoraphobia 01/30/2007 Overview: Panic Attacks Hepatitis C carrier 01/30/2007 Major depressive disorder, single episode, severe 01/14 Overview: ICD10 Diagnosis Term First Coat Operator Utility Combinations of opioid type drug with [...] using Tobacco Use Yes Anene, tobacco Anel, ABSORPTION PLANT OPERATOR (cigarettes, smokeless, etc) Note: Uses smoking for coping, but feels when she her mental issues under control she maybe able to quit documented as of this encounter Results Not on filedocumented in this encounter Visit Diagnoses Diagnosis Diarrhea of presumed infectious origin - Primary documented in this encounter
--- OUTSIDE RECORDS SUMMARY | 2020-06-23 07:39 | XMS REPORT | Summary of Care ---
:1965 Author Organization [facility] - Health Address [address] [place] [address] Care Team Providers Name Role Phone Shad Dolan Insurance Hmo RABIA Panda Primary Care Provider Encounter Details Date Type Department Care Team Description 06/15/2020 Orders Only [facility] Doctor Unassigned, No [address] [facility] [place] [address] [address] [place] [address] Allergies No Known Allergiesdocumented as of this encounter (statuses as of 06/15/2020) Medications Medication Sig Dispensed Refills Start Date End Date Status HYDROXYCHLOROQUINE SULFATE Take by 0 Active (PLAQUENIL ORAL) mouth. citalopram 10 mg tablet Take 10 mg by 0 Active mouth daily. OLANZapine (ZYPREXA) 5 mg Take 5 mg by 0 Active tablet mouth daily. atenoloL 100 mg Take 1 tablet 30 tablet 11 06/15/2020 Active tabletIndications: by mouth at Essential hypertension bedtime. lisinopriL 10 mg Take 1 tablet 30 tablet 11 06/15/2020 Active tabletIndications: by mouth Essential hypertension daily. 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 documented as of this encounter Last Filed Vital Signs Not on filedocumented in this encounter Plan of Treatment Date Type Specialty Care Team Description 06/15/2020 Property Clerk Visit Phlebotomy Anel Panda, RABIA [address] [address] [phone] Debbi, Niurka Lab Main 07/15/2020 Office Visit Family Medicine Santy Haile MD [address] [place] [address], [place] [phone] Health Maintenance Due Date Last Done Comments DTaP,Tdap,and Td Vaccines (1 1986 10/05/2007 - Tdap) COLON CANCER SCREENING 2017 ANNUAL FIT/FOBT COLON CANCER SCREENING FIT 2017 DNA EVERY 3 YEARS COLON CANCER SCREENING 2017 SIGMOIDOSCOPY EVERY 5 YEARS COLONOSCOPY 2017 Colorectal Cancer Screening 2017 Zoster Recombinant Vaccine 2017 (SHINGRIX) (1 of 2) Breast Cancer Screening 06/07/2018 06/07/2017, 04/13/2016 (MAMMOGRAM) PAP SMEAR 05/02/2020 05/02/2017, 09/17/2009, 06/18/2008, Additional history exists INFLUENZA VACCINE (#1) 2020 Depression Screening 06/15/2021 06/15/2020 PNEUMOCOCCAL 0-64 YEARS Aged Out No longe r eligible COMBINED SERIES based on patient 's age to complete this topic documented as of this encounter Goals Goal Patient Goal Associated Recent Patient-Stated? 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
--- OUTSIDE RECORDS SUMMARY | 2020-06-23 07:39 | XMS REPORT | Summary of Care ---
:1965 Author Organization [facility] - [facility] Address [address] [place] [address] Care Team Providers Name Role Phone Dolan Shad Insurance Hmo RABIA Panda Primary Care Provider Reason for Visit Reason Comments Refill Request Encounter Details Date Type Department Care Team Description 06/15/2020 Office Visit [facility] Pediatric Santy Haile hypertension (Primary Dx); and Adult Primary MD Carter Systemic lupus erythematosus, unspecifie d SLE type, unspecified organ involvement status Care- [place] [address] [place] [place] [address], [address] [address] [place], [place] [phone] [address] [phone] Allergies No Known Allergiesdocumented as of this encounter (statuses as of 06/15/2020) Medications Medication Sig Dispensed Refills Start End Status Date Date HYDROXYCHLOROQUINE Take by 0 A ctive SULFATE (PLAQUENIL mouth. ORAL) citalopram 10 mg Take 10 mg by 0 Active tablet mouth daily. OLANZapine (ZYPREXA) 5 Take 5 mg by 0 Active mg tablet mouth daily. atenoloL 100 mg Take 1 tablet 30 tablet 11 Active tabletIndications: by mouth at 0 Essential hypertension bedtime. lisinopriL 10 mg Take 1 tablet 30 tablet 11 Active tabletIndications: by mouth 0 Essential hypertension daily. 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 DICLOFENAC 75 mg EC TAKE ONE 60 tablet 0 Discontinued tablet TABLET BY 8 020 MOUTH TWICE A DAY WITH MEALS LORazepam (ATIVAN) 1 Take 1 tablet 12 tablet 0 06/15 Discontinued mg tabletIndications: by mouth 3 9 020 Unable to control (three) times anger, Situational daily as anxiety needed for Anxiety or Agitation. atenolol 100 mg Take 1 tablet 30 tablet 3 Discontinued tabletIndications: by mouth at 9 020 (Reorder) Essential hypertension bedtime. lisinopriL 10 mg Take 10 mg by 0 Discontinued tablet mouth daily. 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 Anitha is a 54 year old female Hypertension Chronicity: Chronic Context: noncompliance Context: normal sodium, not caffeine, not drug abuse, not herbal remedies, not medication change, not OTC medications used and not stress Relieved by: MARIA inhibitors and beta blockers Associated symptoms: no chest pain, no headaches, no palpitations, no peripheral edema and no shortness of breath Risk factors: family hx of HTN and tobacco use No Known Allergies Current Outpatient Medications Medication Sig Dispense Refill atenoloL 100 mg tablet Take 1 tablet by mouth at bedtime. 30 tablet 11 citalopram 10 mg tablet Take 10 mg by mouth daily. lisinopriL 10 mg tablet Take 1 tablet by mouth daily. 30 tablet 11 OLANZapine (ZYPREXA) 5 mg tablet Take 5 mg by mouth daily. HYDROXYCHLOROQUINE SULFATE (PLAQUENIL ORAL) Take by mouth. No current facility-administered medications for this visit. Past Medical History: Diagnosis Date Alcohol dependency Anxiety Chronic back pain Depression Hepatitis C Remission Hypertension SLE (systemic lupus erythematosus) Substance abuse Meth Past Surgical History: Procedure Laterality Date CONIZATION CERVIX,LOOP ELECTRD [address] Carolina LIVER BIOPSY Social History Socioeconomic History Marital status: Single Spouse name: Not on file Number of children: Not on file Years of education: Not on file Highest education level: Not on file Occupational History Not on file Social Needs Financial resource strain: Somewhat hard Food insecurity Worry: Not on file Inability: Not on file Transportation needs Medical: Not on file Non-medical: Not on file Tobacco Use Smoking status: Current Every Day Smoker Packs/day: 1.00 Years: 11.00 Pack years: 11.00 Types: Cigarettes Smokeless tobacco: Never Used Substance and Sexual Activity Alcohol use: No Alcohol/week: 0.0 standard drinks Comment: n Drug use: Yes Comment: Meth- d/c 4 months ago Sexual activity: Not Currently Partners: Male Comment: last sexual intercourse 12/2016 Lifestyle Physical activity Days per week: Not on file Minutes per session: Not on file Stress: Not on file Relationships Social connections Talks on phone: Not on file Gets together: Not on file Attends buddhist service: Not on file Active member of club or organization: Not on file Attends meetings of clubs or organizations: Not on file Relationship status: Not on file Intimate partner violence Fear of current or ex partner: Not on file Emotionally abused: Not on file Physically abused: Not on file Forced sexual activity: Not on file Other Topics Concern Not on file Social History Narrative Not on file Family History Problem Relation Age of Onset Arthritis NoFHx defects NoFHx Asthma NoFHx Breast Cancer NoFHx Colon Cancer NoFHx Ovarian Cancer NoFHx Uterine Cancer NoFHx Cancer NoFHx Depression NoFHx Diabetes NoFHx High cholesterol NoFHx Heart NoFHx Genetic NoFHx Hypertension NoFHx Mental retardation NoFHx Neurological NoFHx Osteoporosis NoFHx Psychiatry NoFHx Review of Systems Respiratory: Negative for shortness of breath. Cardiovascular: Negative for chest pain and palpitations. Neurological: Negative for headaches. BP (!) 186/109 | Pulse 98 | Ht 5' 6" (1.676 m) | Wt 159 lb (72.1 kg) | LMP 05/02/2015 | BMI 25.66 kg/m Physical Exam Constitutional: She is oriented to person, place, and time. She appears well- developed and well-nourished. HENT: Head: Normocephalic and atraumatic. Eyes: Pupils are equal, round, and reactive to light. Conjunctivae are normal. Neck: Normal range of motion. Neck supple. No JVD present. No tracheal deviation present. No thyromegaly present. Cardiovascular: Normal rate, regular rhythm, normal heart sounds and intact distal pulses. Exam reveals no gallop and no friction rub. No murmur heard. Pulmonary/Chest: Effort normal and breath sounds normal. No respiratory distress. She has no wheezes. She has no rales. She exhibits no tenderness. Abdominal: Soft. Bowel sounds are normal. She exhibits no distension and no mass. There is no abdominal tenderness. There is no rebound and no guarding. Musculoskeletal: Normal range of motion. General: No tenderness or edema. Lymphadenopathy: She has no cervical adenopathy. Neurological: She is alert and oriented to person, place, and time. Skin: Skin is warm and dry. Diagnosis: 1. Essential hypertension atenoloL 100 mg tablet lisinopriL 10 mg tablet 2. Systemic lupus erythematosus, unspecified SLE type, unspecified organ involvement status Degree of control: uncontrolled at present Follow up: one month Patient Care Team: Santy Haile MD as PCP - General ([facility]ILY MEDICINE) Plan of care, desired health behaviors, goals,& medication discussed with patient. Education resources & self management tools provided and reviewed with AVS. Patient/guardian/family verbalized understanding & agrees to plan of care. 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
--- OUTSIDE RECORDS SUMMARY | 2020-06-23 07:39 | XMS REPORT | Summary of Care ---
:1965 Author Organization [facility] - [facility] Address [address] [place] [address] Care Team Providers Name Role Phone Dolan Shad Insurance Hmo RABIA Panda Primary Care Provider Reason for Visit Reason Comments Refill Request Encounter Details Date Type Department Care Team Description 06/15/2020 Office Visit [facility] Pediatric Santy Haile hypertension (Primary Dx); and Adult Primary MD Carter Systemic lupus erythematosus, unspecifie d SLE type, unspecified organ involvement status Care- [place] [address] [place] [place] [address], [address] [address] [place], [place] [phone] [address] [phone] Allergies No Known Allergiesdocumented as of this [...] Chest pain 01/30/2007 Overview: ICD10 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
[2020-06-23] MEDS ORDERED: MEPERIDINE HCL 50 MG/ML ONE (08:10)
[2020-06-23 08:30] LABS: Absolute Lymphocytes (CBC) 0.5 K/uL (0.7-4.9); Basophils % 0.5 % (0-1.3); Hematocrit 37.9 % (36.0-45.0); MPV 8.9 fL (7.6-11.3)
--- NOTE | 2020-06-23 08:46 | RAD REPORT ---
EXAM DESCRIPTION: CTAbdomen Pelvis W Contrast - 06/23/2020 8:35 am CLINICAL HISTORY: Abdominal pain. ABD PAIN COMPARISON: Abdomen Pelvis W Contrast dated 04/08/2020; CT ABD PELVIS W CONTRAST dated 03/31/2014 TECHNIQUE: Biphasic CT imaging of the abdomen and pelvis was performed with 100 ml non-ionic IV cont rast. All CT scans are performed using dose optimization technique as appropriate and may include automated exposure control or mA/KV adjustment according to patient size. FINDINGS: The lung bases are clear. The liver contains a 21 mm enhancing lesion in the right lobe most compatible with a benign hemangiom a. The spleen, pancreas, adrenal glands and kidneys are within normal limits. No bowel obstruction, free air, free fluid or abscess. Mild inflammation is seen surrounding the sigm oid colon in the left lower quadrant where several diverticula are present. This would be compatible with mild acute diverticulitis. No abscess or other complication. The appendix is normal. No evidenc e of significant lymphadenopathy. Moderate lumbosacral degenerative changes. IMPRESSION: Mild acute sigmoid diverticulitis is present without abscess.
[2020-06-23 08:52] LABS: Albumin 3.7 g/dL (3.4-5.0); Bilirubin Direct 0.2 mg/dL (0-0.2); Bilirubin Total 0.5 mg/dL (0.2-1.0); Potassium 3.8 mmol/L (3.5-5.1)
[2020-06-23] MEDS ORDERED: Levofloxacin 750mg IV 750 MG/150 ML BAG IV ONE (09:11)
[2020-06-23] MEDS ORDERED: METRONIDAZOLE 500mg IVPB 500 MG/100 ML BAG IV ONE (09:11)
--- NOTE | 2020-06-23 09:57 | EDPHYS ---
Physician Documentation [facility] Name: Anitha Waggoner Age: 54 yrs Sex: Female : 1965 Arrival Date: 06/23/2020 Time: 07:37 Bed 7 Private MD: ED Physician Jonathan Sheffield HPI: 06/23 07:53 This 54 yrs old Female presents to ER via Unassigned with complaints of rn Abdominal Pain, Nausea/Vomiting. 07:53 The patient presents to the emergency department with nausea, vomiting. Onset: The rn symptoms/episode began/occurred 1 week(s) ago. Possible causes: unknown. The symptoms are aggravated by nothing. The symptoms are alleviated by nothing. Associated signs and symptoms: Pertinent positives: abdominal pain, diarrhea, fever, nausea, vomiting, Pertinent negatives:. Severity of symptoms: At their worst the symptoms were moderate in the emergency department the symptoms are unchanged. The patient has experienced a previous episode. The patient has not recently seen a physician. Reports abd pain, nausea/vomiting, diarrhea, for 1 week, reports similar but a little different from diverticulitis a few months ago, sees Dr. Dixon. On cellcept for lupus. . Historical: - Allergies: 07:54 No Known Allergies; jr10 - Home Meds: 07:54 Atenolol Oral [Active]; Hydroxichloiquinilone [Active]; Tramadol Oral [Active]; jr10 - PMHx: 07:54 Hepatitis; Hypertension; Lupus; Diverticulitis; jr10 - PSHx: 07:54 None; jr10 - Immunization history:: Adult Immunizations up to date. - Social history:: Smoking status: unknown. - Family history:: not pertinent. - Hospitalizations: : No recent hospitalization is reported. ROS: 07:53 Constitutional: + fever Eyes: Negative for injury, pain, redness, and discharge, Neck: rn Negative for injury, pain, and swelling, Cardiovascular: Negative for chest pain, palpitations, and edema, Respiratory: Negative for shortness of breath, cough, wheezing, and pleuritic chest pain, Abdomen/GI: + abd pain/nausea/vomiting/diarrhea MS/Extremity: Negative for injury and deformity, Skin: Negative for injury, rash, and discoloration, Neuro: Negative for headache, weakness, numbness, tingling, and seizure. Exam: 07:53 Constitutional: This is a well developed, well nourished patient who is awake, alert, rn and in no acute distress. Head/Face: Normocephalic, atraumatic. ENT: dry MM Cardiovascular: Regular rate and rhythm. No pulse deficits. Respiratory: No increased work of breathing, no retractions or nasal flaring. Abdomen/GI: soft, mild periumbilica/suprapubic/LLQ tenderness without peritoneal signs. MS/ Extremity: Pulses equal, no cyanosis. Neurovascular intact. Full, normal range of motion. Equal circumference. Neuro: Awake and alert, GCS 15, oriented to person, place, time, and situation. Cranial nerves II-XII grossly intact. Motor strength 5/5 in all extremities. Sensory grossly intact. Vital Signs: 07:52 BP 151 / 95; Pulse 87; Resp 20; Temp 99.6(TE); Pulse Ox 99% ; Pain 8/10; jr10 08:23 BP 142 / 73; Pulse 72; Resp 18; Pulse Ox 96% ; jr10 09:10 BP 113 / 74; Pulse 64; Resp 20; Pulse Ox 98% on R/A; jr10 10:21 BP 119 / 74; Pulse 65; Resp 18; Pulse Ox 98% ; Pain 0/10; jr10 11:24 BP 114 / 70; Pulse 68; Resp 18; Temp 99.2; Pulse Ox 99% on R/A; Pain 0/10; jr10 MDM: 07:45 Patient medically screened. rn 09:56 Differential diagnosis: Nonspecific abd pain, appendicitis, diverticulitis, rn gastroenteritis. Data reviewed: vital signs, nurses notes, lab test result(s), radiologic studies, CT scan, and as a result, I will discharge patient. Counseling: I had a detailed discussion with the patient and/or guardian regarding: the historical points, exam findings, and any diagnostic results supporting the discharge/admit diagnosis, lab results, radiology results, the need for outpatient follow up, to return to the emergency department if symptoms worsen or persist or if there are any questions or concerns that arise at home. Response to treatment: the patient's symptoms have markedly improved after treatment, and as a result, I will discharge patient. Special discussion: Based on the patient's Hx, exam, and Dx evaluation, there is no indication for emergent surgery or inpatient Tx. It is understood by the patient/guardian that if the Sx's persist or worsen they need to return immediately for re-evaluation. I discussed with the patient/guardian in detail that at this point there is no indication for admission to the hospital. It is understood, however, that if the symptoms persist or worsen the patient needs to return immediately for re-evaluation. 06/23 07:53 Order name: Basic Metabolic Panel; Complete Time: 08:54 rn 06/23 07:53 Order name: CBC with Diff rn 06/23 07:53 Order name: Hepatic Function; Complete Time: 08:54 rn 06/23 07:53 Order name: Lipase; Complete Time: 08:54 rn 06/23 08:40 Order name: CREATININE WHOLE BLOOD; Complete Time: 08:47 EDMS 06/23 10:48 Order name: CBC Smear Scan EDMS 06/23 07:53 Order name: IV Saline Lock; Complete Time: 08:22 rn 06/23 07:53 Order name: Labs collected and sent; Complete Time: 08:22 rn 06/23 07:53 Order name: CT Abd/Pelvis - IV Contrast Only; Complete Time: 08:47 rn Administered Medications: 08:21 Drug: Zofran (Ondansetron) 4 mg Route: IVP; Site: left antecubital; jr10 08:48 Follow up: Response: No adverse reaction jr10 08:21 Drug: Demerol 25 mg Route: IVP; Site: left antecubital; jr10 08:49 Follow up: Response: No adverse reaction jr10 08:22 Drug: NS 0.9% 1000 ml Route: IV; Rate: 1000 ml; Site: left antecubital; jr10 11:25 Follow up: Response: No adverse reaction; IV Status: Completed infusion jr10 09:10 Drug: Flagyl 500 mg Volume: 100 ml; Route: IVPB; Rate: 200 ml/hr; Infused Over: 30 jr10 mins; Site: left antecubital; 09:46 Follow up: Response: No adverse reaction; IV Status: Completed infusion jr10 09:46 Drug: LevaQUIN 750 mg Volume: 150 ml; Route: IVPB; Infused Over: 90 mins; Site: left 10 antecubital; 11:25 Follow up: Response: No adverse reaction; IV Status: Completed infusion jr10 Disposition: 06/23/20 09:56 Discharged to Home. Impression: Diverticulitis of small intestine without perforation or abscess without bleeding. - Condition is Stable. - Discharge Instructions: Diverticulitis. - Prescriptions for Zofran ODT 4 mg Oral tablet,disintegrating - place 1 tablet by TRANSLINGUAL route every 8 hours As needed; 20 tablet. Flagyl 500 mg Oral Tablet - take 1 tablet by ORAL route every 8 hours for 10 days; 30 tablet. Levaquin 750 mg Oral Tablet - take 1 tablet by ORAL route once daily for 10 days; 10 tablet. Ultram 50 mg Oral Tablet - take 1 tablet by ORAL route every 6 hours As needed; 15 tablet. - Medication Reconciliation Form, Thank You Letter, Antibiotic Education, Prescription Opioid Use form. - Follow up: Lily Dixon; When: 1 week; Reason: Recheck today's complaints, Re-evaluation by your physician. - Problem is new. - Symptoms have improved. Signatures: Dispatcher [employer] EDMS Jonathan Sheffield MD MD rn Rivera, Jessica, RN RN jr10 Corrections: (The following items were deleted from the chart) 11:26 09:56 06/23/2020 09:56 Discharged to Home. Impression: Diverticulitis of small jr10 intestine without perforation or abscess without bleeding. Condition is Stable. Discharge Instructions: Diverticulitis. Prescriptions for Zofran ODT 4 mg Oral tablet,disintegrating - place 1 tablet by TRANSLINGUAL route every 8 hours As needed; 20 tablet, Flagyl 500 mg Oral Tablet - take 1 tablet by ORAL route every 8 hours for 10 days; 30 tablet, Levaquin 750 mg Oral Tablet - take 1 tablet by ORAL route once daily for 10 days; 10 tablet, Ultram 50 mg Oral Tablet - take 1 tablet by ORAL route every 6 hours As needed; 15 tablet. and Forms are Medication Reconciliation Form, Thank You Letter, Antibiotic Education, Prescription Opioid Use. Follow up: Lily Dixon; When: 1 week; Reason: Recheck today's complaints, Re-evaluation by your physician. Problem is new. Symptoms have improved. rn
--- NOTE | 2020-06-23 09:57 | ER ---
Nurse's Notes [facility] Name: Anitha Waggoner Age: 54 yrs Sex: Female : 1965 Arrival Date: 06/23/2020 Time: 07:37 Bed 7 Private MD: Diagnosis: Diverticulitis of small intestine without perforation or abscess without bleeding Presentation: 06/23 07:52 Chief complaint: Patient states: Pt presents with c/o n/v/d with generalized abd pain jr10 x1 week, worse within the past 24 hours; pt reports hx of recent diverticulitis and hx of lupus; denies any sick contacts at home. Coronavirus screen: Client denies travel out of the [place] in the last 14 days. At this time, the client does not indicate any symptoms associated with coronavirus-19. Ebola Screen: No symptoms or risks identified at this time. Initial Sepsis Screen: Does the patient meet any 2 criteria? No. Patient's initial sepsis screen is negative. Does the patient have a suspected source of infection? No. Patient's initial sepsis screen is negative. Risk Assessment: Do you want to hurt yourself or someone else? Patient reports no desire to harm self or others. Onset of symptoms is unknown. 07:52 Method Of Arrival: Ambulatory jr10 07:52 Acuity: YAMEL 3 jr10 Historical: - Allergies: 07:54 No Known Allergies; jr10 - Home Meds: 07:54 Atenolol Oral [Active]; Hydroxichloiquinilone [Active]; Tramadol Oral [Active]; jr10 - PMHx: 07:54 Hepatitis; Hypertension; Lupus; Diverticulitis; jr10 - PSHx: 07:54 None; jr10 - Immunization history:: Adult Immunizations up to date. - Social history:: Smoking status: unknown. - Family history:: not pertinent. - Hospitalizations: : No recent hospitalization is reported. Screenin:56 Abuse screen: Denies threats or abuse. Denies injuries from another. Nutritional jr10 screening: No deficits noted. Tuberculosis screening: No symptoms or risk factors identified. Fall Risk None identified. Assessment: 07:55 General: Appears uncomfortable, Behavior is appropriate for age. Pain: Complains of jr10 pain in abdomen Pain radiates to pelvis Pain currently is 8 out of 10 on a pain scale. Quality of pain is described as crampy, Pain began 1 week ago Is continuous, Also complains of decreased appetite, nausea. Neuro: No deficits noted. Cardiovascular: No deficits noted. Respiratory: No deficits noted. GI: Abdomen is non-distended, Bowel sounds present X 4 quads. Abd is soft and non tender Reports lower abdominal pain, diarrhea, intolerance of fluids, intolerance of food, nausea, vomiting. : No deficits noted. No signs and/or symptoms were reported regarding the genitourinary system. EENT: No deficits noted. No signs and/or symptoms were reported regarding the EENT system. Derm: No deficits noted. No signs and/or symptoms reported regarding the dermatologic system. Musculoskeletal: No deficits noted. No signs and/or symptoms reported regarding the musculoskeletal system. Vital Signs: 07:52 BP 151 / 95; Pulse 87; Resp 20; Temp 99.6(TE); Pulse Ox 99% ; Pain 8/10; jr10 08:23 BP 142 / 73; Pulse 72; Resp 18; Pulse Ox 96% ; jr10 09:10 BP 113 / 74; Pulse 64; Resp 20; Pulse Ox 98% on R/A; jr10 10:21 BP 119 / 74; Pulse 65; Resp 18; Pulse Ox 98% ; Pain 0/10; jr10 11:24 BP 114 / 70; Pulse 68; Resp 18; Temp 99.2; Pulse Ox 99% on R/A; Pain 0/10; jr10 ED Course: 07:37 Patient arrived in ED. ds1 07:44 Jonathan Sheffield MD is Attending Physician. rn 07:52 Estefania Mckeon RN is Primary Nurse. jr10 07:54 Triage completed. jr10 07:54 Arm band placed on. jr10 07:56 Patient has correct armband on for positive identification. Placed in gown. Bed in low jr10 position. Call light in reach. Side rails up X2. Pulse ox on. NIBP on. 08:22 Warm blanket given. mh5 08:22 No provider procedures requiring assistance completed. Inserted saline lock: 20 gauge jr10 in left antecubital area, using aseptic technique. IV is patent, is intact, with fluids infusing freely, with good blood return, Flushed. 08:35 CT Abd/Pelvis - IV Contrast Only In Process Unspecified. EDMS 09:56 Lily Dixon MD is Referral Physician. rn 11:25 IV discontinued, intact, bleeding controlled, No redness/swelling at site. Pressure jr10 dressing applied. Administered Medications: 08:21 Drug: Zofran (Ondansetron) 4 mg Route: IVP; Site: left antecubital; jr10 08:48 Follow up: Response: No adverse reaction jr10 08:21 Drug: Demerol 25 mg Route: IVP; Site: left antecubital; jr10 08:49 Follow up: Response: No adverse reaction jr10 08:22 Drug: NS 0.9% 1000 ml Route: IV; Rate: 1000 ml; Site: left antecubital; jr10 11:25 Follow up: Response: No adverse reaction; IV Status: Completed infusion jr10 09:10 Drug: Flagyl 500 mg Volume: 100 ml; Route: IVPB; Rate: 200 ml/hr; Infused Over: 30 jr10 mins; Site: left antecubital; 09:46 Follow up: Response: No adverse reaction; IV Status: Completed infusion jr10 09:46 Drug: LevaQUIN 750 mg Volume: 150 ml; Route: IVPB; Infused Over: 90 mins; Site: left jr10 antecubital; 11:25 Follow up: Response: No adverse reaction; IV Status: Completed infusion jr10 Outcome: 09:56 Discharge ordered by MD. rn 11:25 Discharged to home ambulatory. jr10 11:25 Condition: improved 11:25 Discharge instructions given to patient, Instructed on discharge instructions, follow up and referral plans. Demonstrated understanding of instructions, follow-up care, medications, Prescriptions given X 4. 11:26 Patient left the ED. jr10 Signatures: Dispatcher [employer] [facility] Mone Cotto ds1 Jonathan Sheffield MD MD rn Martinez, Maria [facility] Estefania Mckeon RN RN jr10
[2020-06-23 10:48] LABS: Blood Morphology Comment NOT SEEN (NOT SEEN); Platelet Estimate ADEQ; White Blood Cell Scan OK (OK)
[2020-06-23 16:05] VITALS: BP 114/70; TEMP 99.2; O2SAT 99
== END 2020-06-23 11:26 | disposition home or self-care (01) ==
LOC: ER 07:34
DX: K57.12 Diverticulitis of small intestine without perforation or abscess without bleeding (principal); I10 Essential (primary) hypertension
CPT/HCPCS: 36415; 74177; 80048; 80076; 82565; 83690; 85025; 96361; 96365; 96367; 96375; 99284; J2175; Q9967